=== PATIENT | female | born 1980 | race Caucasian/White ===

== ENCOUNTER 2017-01-19 16:22 | Emergency (ER) | payer SELFPAY ==
[~2017-01-19] VITALS: Ht 162.6 cm; Wt 48.5 kg
[2017-01-19 16:35] VITALS: BP 115/76; PULSE 88; RESP 16; TEMP 98; O2SAT 100
--- NOTE | 2017-01-19 16:41 | NUR ---
Patient triaged and placed in waiting room. VSS and patient appears in no acute distress at this time. Accompanied by FRIEND, awaiting available bed, and MD notified of need for MSE.
--- NOTE | 2017-01-19 18:00 | NUR ---
Pt to [facility] chair 1. SYBIL Colmenares at bedside for evaluation
[2017-01-19 18:23] VITALS: BP 115/76; PULSE 88; RESP 16; TEMP 98; O2SAT 100
--- NOTE | 2017-01-19 18:23 | NUR ---
Patient given written and verbal discharge instructions and verbalizes understanding. ER MD discussed with patient the results and treatment provided. Patient in stable condition. ID arm band removed. Rx of keflex, motrin given. Patient educated on pain management and to follow up with PMD. Pain Scale 3/10. Opportunity for questions provided and answered.
== END 2017-01-19 18:23 | disposition home or self-care (01) ==
LOC: SED 16:22
DX: K04.7 Periapical abscess without sinus (principal)
CPT/HCPCS: 81025; 99283